=== PATIENT | male | born 1955 | race African-American/Black ===

== ENCOUNTER 2024-02-28 19:15 | Emergency (ER) | payer MEDICARE, MEDICAID ==
[~2024-02-28] VITALS: Ht 172.7 cm; Wt 80.0 kg
[2024-02-28 19:18] VITALS: O2SAT 99
[2024-02-28] MEDS: KETOROLAC 15MG/ML VIAL IV ONE (20:40)
[2024-02-28 20:57] LABS: EOSINOPHILS % 1.6 % (0.0-5.0); HEMATOCRIT. 37.7 % (42.0-52.0); HEMOGLOBIN. 12.2 g/dL (14.0-18.0); LYMPHOCYTES % 19.5 % (20.0-50.0); MEAN CORPUSCULAR HEMOGLOBIN 29.4 pg (28.0-32.0); MEAN CORPUSCULAR HGB CONC 32.4 g/dL (31.0-37.0); MEAN CORPUSCULAR VOLUME 90.8 fL (80.0-94.0); MEAN PLATELET VOLUME 10.7 fl (7.4-10.4); MONOCYTES % 10.2 % (2.0-8.0); NEUTROPHILS % 67.7 % (40.0-76.0); PLATELET 218 x1000/uL (130-400); RED BLOOD CELL COUNT 4.15 mill/uL (4.7-6.1); RED CELL DISTRIBUTION WIDTH 14.9 % (11.6-14.6); WHITE BLOOD COUNT 4.8 x1000/uL (4.5-11.0)
[2024-02-28 21:08] LABS: CHLORIDE 106 mEq/L (98-107); POTASSIUM 4.3 mEq/L (3.5-5.1); SODIUM 139 mEq/L (136-145)
[2024-02-28 21:09] LABS: CARBON DIOXIDE 24 mEq/L (21-32)
[2024-02-28 21:10] LABS: CALCIUM 9.3 mg/dL (8.7-10.4)
[2024-02-28 21:14] LABS: CREATININE 1.4 mg/dL (0.6-1.3); GLUCOSE 103 mg/dL (70-105); UREA NITROGEN BLOOD 26 mg/dL (9-23)
[2024-02-28 23:00] VITALS: TEMP 36.61404
[2024-02-29 00:15] VITALS: BP 155/92; PULSE 92; RESP 28; O2SAT 97
== END 2024-02-29 00:31 | disposition home or self-care (01) ==
LOC: ER 19:15
DX: K40.90 Unilateral inguinal hernia, without obstruction or gangrene, not specified as recurrent (principal); I11.0 Hypertensive heart disease with heart failure; I50.9 Heart failure, unspecified
CPT/HCPCS: 80048; 85025; 36415; 74177; 96374; 99285; J1885; Z7610 ×3

== ENCOUNTER 2024-03-20 13:04 | Emergency (ER) | payer MEDICARE, MEDICAID ==
[~2024-03-20] VITALS: Ht 175.3 cm; Wt 77.0 kg
[2024-03-20 13:07] VITALS: BP 155/96; PULSE 92; TEMP 98.4; O2SAT 99
[2024-03-20] MEDS: ACETAMINOPHEN 500MG TABLET PO ONE (14:42)
[2024-03-20] MEDS ORDERED: NAPR-1176 MT (15:02)
[2024-03-20] MEDS ORDERED: LIDO700A15 TP (15:02)
[2024-03-20 15:15] VITALS: RESP 16
== END 2024-03-20 15:15 | disposition home or self-care (01) ==
LOC: ER 13:12
DX: S20.219A Contusion of unspecified front wall of thorax, initial encounter (principal); I11.0 Hypertensive heart disease with heart failure; I50.9 Heart failure, unspecified; V19.9XXA Pedal cyclist (driver) (passenger) injured in unspecified traffic accident, initial encounter; Y93.89 Activity, other specified; Y92.89 Other specified places as the place of occurrence of the external cause; Y99.8 Other external cause status
CPT/HCPCS: 71101; 99283